=== PATIENT | male | born 1975 | race Hispanic/Latino ===

== ENCOUNTER 2021-01-29 16:15 | Emergency (ER) | payer OTHER ==
--- OUTSIDE RECORDS SUMMARY | 2021-01-29 16:19 | XMS REPORT | Continuity of Care Document ---
:1975 Author Organization [facility] t Address [address] [id number] Care Team Providers Name Role Phone Unavailable Unavailable Unavailable Problems This patient has no known problems. Allergies, Adverse Reactions, Alerts This patient has no known allergies or adverse reactions. Medications This patient has no known medications. Procedures This patient has no known procedures. Results This patient has no known results.
--- NOTE | 2021-01-29 18:12 | ER ---
Nurse's Notes [facility] Name: Nano Olivares Jr Age: 45 yrs Sex: Male : 1975 Arrival Date: 01/29/2021 Time: 16:19 Bed 25 Private MD: Diagnosis: Pain in right knee Presentation: 01/29 16:19 Chief complaint: Patient states: right knee pain x 1 week, denies injury. Coronavirus sv screen: Client denies travel out of the [place] in the last 14 days. At this time, the client does not indicate any symptoms associated with coronavirus-19. Ebola Screen: No symptoms or risks identified at this time. Risk Assessment: Do you want to hurt yourself or someone else? Patient reports no desire to harm self or others. Onset of symptoms was January 22, 2021. 16:19 Method Of Arrival: Ambulatory sv 16:19 Acuity: GRACIA 4 sv 16:20 Initial Sepsis Screen: Does the patient meet any 2 criteria? No. Patient's initial sv sepsis screen is negative. Does the patient have a suspected source of infection? No. Patient's initial sepsis screen is negative. Historical: - Allergies: 16:20 No Known Allergies; sv - PMHx: 16:20 None; sv - PSHx: 16:20 None; sv - Immunization history:: Adult Immunizations up to date. - Social history:: Smoking status: . Screenin:10 Abuse screen: Denies threats or abuse. Nutritional screening: No deficits noted. vg1 Tuberculosis screening: No symptoms or risk factors identified. Fall Risk None identified. Assessment: 16:21 Reassessment: Received VO from Dr Andrews for knee xray. sv 18:08 General: Appears in no apparent distress. comfortable, Behavior is calm, cooperative. vg1 Pain: Complains of pain in Right knee Pain currently is 6 out of 10 on a pain scale. Neuro: Level of Consciousness is awake, alert, obeys commands, Oriented to person, place, time, situation. Cardiovascular: Patient's skin is warm and dry. Respiratory: Airway is patent Respiratory effort is even, unlabored. GI: No signs and/or symptoms were reported involving the gastrointestinal system. : No signs and/or symptoms were reported regarding the genitourinary system. EENT: No signs and/or symptoms were reported regarding the EENT system. Derm: Skin is intact, is healthy with good turgor. Musculoskeletal: Circulation, motion, and sensation intact. Vital Signs: 16:20 BP 143 / 90; Pulse 90; Resp 16; Temp 97.8(TE); Pulse Ox 99% ; Weight 92.99 kg; Height 5 sv ft. 11 in. (180.34 cm); Pain 5/10; 18:09 BP 136 / 89; Pulse 80; Resp 16; Pulse Ox 100% on R/A; vg1 16:20 Body Mass Index 28.59 (92.99 kg, 180.34 cm) sv ED Course: 16:19 Patient arrived in ED. sv 16:20 Triage completed. sv 16:20 Arm band placed on. sv 17:26 Manjit Rose PA is PHCP. cp 17:26 Manjit Andrews MD is Attending Physician. cp 18:03 Soraya Norton, RN is Primary Nurse. vg1 18:10 Patient has correct armband on for positive identification. Placed in gown. Bed in low vg1 position. Call light in reach. Side rails up X 1. 18:11 Tito Gonzalez MD is Referral Physician. cp 18:38 No provider procedures requiring assistance completed. Patient did not have IV access vg1 during this emergency room visit. 18:57 Knee Right 3 View XRAY In Process Unspecified. EDMS Administered Medications: 18:08 Drug: Ibuprofen 800 mg Route: PO; vg1 18:38 Follow up: Response: Medication administered at discharge. vg1 Outcome: 18:12 Discharge ordered by MD. cp 18:38 Discharged to home ambulatory. vg1 18:38 Condition: stable 18:38 Discharge instructions given to patient, Instructed on discharge instructions, follow up and referral plans. medication usage, Demonstrated understanding of instructions, follow-up care, medications, Prescriptions given X 1. 18:39 Patient left the ED. vg1 Signatures: Dispatcher [employer] EDMS Vickie Cyr RN RN Manjit Rose PA PA cp Soraya Norton, RN RN vg1 Corrections: (The following items were deleted from the chart) 16:22 16:20 Pulse 90bpm; Resp 16bpm; Pulse Ox 99%; Temp 97.8F; 92.99 kg; Height 5 ft. 11 in.; sv BMI: 28.5; Pain 5/10; sv
--- NOTE | 2021-01-29 18:12 | EDPHYS ---
Physician Documentation [facility] [place], [place] Name: Nano Olivares Jr Age: 45 yrs Sex: Male : 1975 Arrival Date: 01/29/2021 Time: 16:19 Bed 25 Private MD: LANCE Physician Manjit Andrews HPI: 01/29 17:30 This 45 yrs old Male presents to ER via Ambulatory with complaints of Knee cp Pain. 17:30 The patient presents with pain, that is acute. cp 17:30 The complaints affect the medial aspect of right knee and right knee. Context: resulted cp from an unknown cause, the patient can fully bear weight, the patient is able to ambulate, with mild difficulty, Problem is a result from a previous injury: No. Onset: The symptoms/episode began/occurred 1 week(s) ago. Associated signs and symptoms: Pertinent negatives calf tenderness, fever, numbness, swelling, warmth. Treatment prior to arrival includes: no previous treatment. Historical: - Allergies: 16:20 No Known Allergies; sv - PMHx: 16:20 None; sv - PSHx: 16:20 None; sv - Immunization history:: Adult Immunizations up to date. - Social history:: Smoking status: . ROS: 17:35 MS/extremity: Positive for pain, tenderness, of the right knee and medial aspect of cp right knee, Negative for injury or acute deformity, decreased range of motion, paresthesias. 17:35 Constitutional: Negative for body aches, chills, fever. cp 17:35 Cardiovascular: Negative for chest pain. 17:35 Respiratory: Negative for cough, shortness of breath, wheezing. 17:35 Abdomen/GI: Negative for abdominal pain, nausea, vomiting, and diarrhea. 17:35 Back: Negative for pain at rest, pain with movement. 17:35 Skin: Negative for rash. 17:35 Neuro: Negative for altered mental status, headache, weakness. 17:35 All other systems are negative. Exam: 17:40 Constitutional: The patient appears in no acute distress, alert, awake, comfortable, cp non-toxic, well developed, well nourished. 17:40 Back: pain, is absent, ROM is normal. cp 17:40 Musculoskeletal/extremity: Extremities: grossly normal except: noted in the medial aspect of right knee: pain, tenderness, There is no evidence of decreased ROM, deformity, ROM: limited passive range of motion due to pain, in the right knee, Perfusion: the extremity is normally perfused throughout, Sensation intact. Weight bearing: able to fully bear weight, without difficulty. 17:40 Skin: cellulitis, is not appreciated, no rash present. Vital Signs: 16:20 BP 143 / 90; Pulse 90; Resp 16; Temp 97.8(TE); Pulse Ox 99% ; Weight 92.99 kg; Height 5 sv ft. 11 in. (180.34 cm); Pain 5/10; 18:09 BP 136 / 89; Pulse 80; Resp 16; Pulse Ox 100% on R/A; vg1 16:20 Body Mass Index 28.59 (92.99 kg, 180.34 cm) sv MDM: 17:28 Patient medically screened. cp 17:40 Differential diagnosis: tendonitis, meniscus tear, strain. cp 18:10 Data reviewed: vital signs, nurses notes, radiologic studies, plain films. cp 18:10 Test interpretation: by ED physician or midlevel provider: xrays of right knee negative cp for fracture. Counseling: I had a detailed discussion with the patient and/or guardian regarding: the historical points, exam findings, and any diagnostic results supporting the discharge/admit diagnosis, radiology results, the need for outpatient follow up, a orthopedic surgeon, to return to the emergency department if symptoms worsen or persist or if there are any questions or concerns that arise at home. 01/29 16:22 Order name: Knee Right 3 View XRAY sv Administered Medications: 18:08 Drug: Ibuprofen 800 mg Route: PO; vg1 18:38 Follow up: Response: Medication administered at discharge. vg1 Disposition: 18:20 Chart complete. cp 01/30 06:24 Co-signature as Attending Physician, Manjit Andrews MD I agree with the assessment and vince plan of care. Disposition: 01/29/21 18:12 Discharged to Home. Impression: Pain in right knee. - Condition is Stable. - Discharge Instructions: Elastic Bandage and RICE, How to Use a Knee Brace, Knee Pain. - Prescriptions for Naprosyn 500 mg Oral Tablet - take 1 tablet by ORAL route 2 times per day take with food; 20 tablet. - Medication Reconciliation Form, Thank You Letter, Antibiotic Education, Prescription Opioid Use, Work release form form. - Follow up: Tito Gonzalez MD; When: 2 - 3 days; Reason: Recheck today's complaints. - Problem is new. - Symptoms have improved. Signatures: Dispatcher [employer] Vickie Ng, RN RN Manjit Gil MD MD cha Page, Corey, PA PA cp Garcia, Victoria, RN RN vg1 Corrections: (The following items were deleted from the chart) 01/29 18:39 18:12 01/29/2021 18:12 Discharged to Home. Impression: Pain in right knee. Condition is vg1 Stable. Forms are Medication Reconciliation Form, Thank You Letter, Antibiotic Education, Prescription Opioid Use. Follow up: Dr. Tito Gonzalez; When: 2 - 3 days; Reason: Recheck today's complaints. Problem is new. Symptoms have improved. cp
[2021-01-29] MEDS ORDERED: IBUPROFEN 400 MG TAB ONE (18:22)
--- NOTE | 2021-01-29 19:11 | RAD REPORT ---
EXAM DESCRIPTION: RAD - Knee Right 3 View - 01/29/2021 6:57 pm CLINICAL HISTORY: Right knee pain FINDINGS: No fracture or dislocation is seen. Spur extends off the anterior superior aspect of sald[place] la. Mild medial joint space narrowing and small osteophytes A small bony/calcific density in the intercondylar notch may represent a loose body.
[2021-01-29 20:49] VITALS: TEMP 97.8
[2021-01-29 20:50] VITALS: BP 136/89; O2SAT 100
== END 2021-01-29 18:39 | disposition home or self-care (01) ==
LOC: ER 16:15
DX: M25.561 Pain in right knee (principal)
CPT/HCPCS: 99283